=== PATIENT | male | born 1935 | race Caucasian/White ===

== ENCOUNTER → 2016-09-22 | Outpatient (CLI) | payer OTHER, BC ==
[2016-09-22 07:52] LABS: HEMOGLOBIN 18.4 g/dL (14.0-18.0); MEAN CORPUSCULAR HEMOGLOBIN 30.3 PG (27-31); MEAN CORPUSCULAR HGB CONC 35.4 g/dL (33-37); MEAN CORPUSCULAR VOLUME 85.5 FL (80-90); MEAN PLATELET VOLUME 9.1 FL (7.4-12.2); RED BLOOD COUNT 6.08 10^6/uL (4.70-6.10)
[2016-09-22 08:01] LABS: CALCIUM 9.6 mg/dL (8.7-10.7); CHOL/HDL RATIO 3.32 RATIO (0-4.0); LDL CHOLESTEROL,CALCULATED 86.2 mg/dL; SERUM ALBUMIN 4.2 g/dL (3.5-4.8)
[2016-09-22 08:04] LABS: HEMOGLOBIN A1C 7.34 % (4.2-6.0)
== END ==
LOC: LAB 07:37
PROVIDERS: ATTEND Family Medicine
DX: E11.9 Type 2 diabetes mellitus without complications (principal); E78.00 Pure hypercholesterolemia, unspecified; I10 Essential (primary) hypertension; N40.1 Benign prostatic hyperplasia with lower urinary tract symptoms; F17.200 Nicotine dependence, unspecified, uncomplicated; Z12.5 Encounter for screening for malignant neoplasm of prostate
CPT/HCPCS: 36415; 80053; 80061; 83036; 85027; G0103